=== PATIENT | male | born 1975 | race Two or more races ===

== ENCOUNTER 2019-11-08 11:25 | Emergency (ER) | payer SELFPAY ==
[~2019-11-08] VITALS: Ht 185.4 cm; Wt 86.0 kg
[2019-11-08 11:49] VITALS: BP 136/94
== END 2019-11-08 14:51 | disposition home or self-care (01) ==
LOC: ER 13:32
DX: H66.91 Otitis media, unspecified, right ear (principal); J02.9 Acute pharyngitis, unspecified; J45.909 Unspecified asthma, uncomplicated; F17.200 Nicotine dependence, unspecified, uncomplicated
CPT/HCPCS: 99283